=== PATIENT | female | born 1995 | race Caucasian/White ===

== ENCOUNTER 2021-06-12 08:20 | Emergency (ER) | payer OTHER ==
[~2021-06-12] VITALS: Ht 170.2 cm; Wt 128.0 kg
--- NOTE | 2021-06-12 08:31 | PHYS DOC ---
Adult General HPI HPI Patient is a 26 year old female at 30 weeks gestation who presents with concerns of not feeling her baby move in the last 24 hours. She states that her baby is usually very active and is concerned because the last time she felt him move was 2 days ago. She checked heart tones with a home doppler and was unable to get heart tones. She denies any trauma to her belly. Denies vaginal bleeding, loss of fluids, and movement. She endorses jeni toro contractions, but has not experienced any today. Review of Systems Review of Systems Fourteen body systems of review of systems have been reviewed. See HPI for pertinent positives and negative responses, other reddy all other systems are negative, non-pertinent or non-contributory Physical Exam Physical Exam Constitutional: Well developed, well nourished, no acute distress, non-toxic appearance. HENT: Normocephalic, atraumatic, bilateral external ears normal, oropharynx moist, no oral exudates, nose normal. Eyes: PERRLA, EOMI, conjunctiva normal, no discharge. Neck: Normal range of motion, no tenderness, supple, no stridor. Cardiovascular: Heart rate regular, sinus rhythm, no murmurs rubs or gallops Lungs & Thorax: Bilateral breath sounds clear to auscultation Abdomen: Bowel sounds normal, soft and gravid, no tenderness, no masses, no pulsatile masses. Nonsurgical abdomen, no peritoneal signs Skin: Warm, dry, no erythema, no rash. Back: No tenderness, no CVA tenderness. Extremities: No tenderness, no cyanosis, no clubbing, ROM intact, no edema. Neurologic: Alert and oriented X 3, grossly normal motor & sensory function, no focal deficits noted. Psychologic: Affect normal, judgement normal, mood normal. Current Patient Data Vital Signs Vital Signs Date Time Temp Pulse Resp B/P (MAP) Pulse Ox O2 Delivery O2 Flow Rate FiO2 06/12/21 08:43 98.4 110 18 158/109 (125) 97 Vital Signs Date Time Temp Pulse Resp B/P (MAP) Pulse Ox O2 Delivery O2 Flow Rate FiO2 06/12/21 10:17 105 18 138/88 (105) 98 06/12/21 08:43 98.4 EKG EKG [] Radiology/Procedures Radiology/Procedures EXAM: Obstetrics sonogram. CLINICAL HISTORY: Decreased movement. COMPARISON: None available. TECHNIQUE: Limited transabdominal ultrasound of the uterus was performed. FINDINGS: NUMBER: Single. POSITION: Cephalic. PLACENTA: Location: Anterior. ANATOMY: HEART RATE: 152 bpm. There is minimal body motion. There is a normal amniotic fluid index of 17.8 cm. The current measurements are: BPD - 7.96 = 32w0d HC -29.49 = 32w4d AC - 29.16 = 33w1d FL - 5.79 = 30w2d The weight is 1115 g. MATERNAL ANATOMY The cervix is not visualized. HISTORICAL DATES Last menstrual period: 11/10/2020 CALCULATED DATES EGA (LMP): 30 weeks and 4 days. CHELSEA (LMP): 08/17/2021 EGA (US): 32 weeks and 0 days CHELSEA (US): 08/07/2021 IMPRESSION: 1. Single intrauterine fetus with normal heart rate and gestational age based on ultrasound measurements of 32 weeks and 0 days. This is 10 days greater than the gestational age based on LMP. 2. Minimal body motion during the exam. 3. Note is made that the anatomy is not formally assessed on this exam. Electronically signed by: Sammi Chopra MD (06/12/2021 9:37 AM) [id number] Heart Score C/O Chest Pain: No Risk Factors: Risk Factors: DM, Current or recent (<one month) smoker, HTN, HLP, family history of CAD, obesity. Risk Scores: Risk Factors: DM, Current or recent (<one month) smoker, HTN, HLP, family history of CAD, obesity. Course & Med Decision Making Course & Med Decision Making ABCs unremarkable HPI, physical exam, heart rate 148 and formal ultrasound showing positive activity albeit decreased motion overall I attempted to contact patient's [facility]URSE [facility]CHOOL at [facility] when patient voiced that she wa nted to leave AGAINST MEDICAL ADVICE I had an extensive discussion with the patient regarding the risks of leaving AMA including but not limited to , permanent disability, and worsening condition. Pt acknowledged the risks and agreed to take full responsibility. Pt was A&Ox4 and had full medical decision making capacity when she signed the AMA sheet. States she just wanted to come here " to make sure everything was okay" in route to her hospital where she plans to deliver. She knew we did not have [employer]URSE SCHOOL services yet still wanted to stop for evaluation. Reports she will present directly to [facility] Risks and Recommendations: The risks of refusing recommended care that were disclosed and acknowledged by the patient include loss of current lifestyle, per manent mental impairment, and . The recommended medical care being refused has been discussed with the patient and is to stay for continued monitoring, workup, and possible treatment. Discharge Care: The patient understands they are welcome to return to the hospital at any time to receive the recommended care or any other care at any time, regardless of their ability to pay for such care. Discharge instructions were provided to the patient. Dragon Disclaimer Dragon Disclaimer This electronic medical record was generated, in whole or in part, using a voice recognition dictation system. Departure Departure: Impression: Primary Impression: Decreased movement affecting management of in third trimester Disposition: 07 LEFT AGAINST MEDICAL ADVICE Condition: GUARDED Referrals: ANDREW CHRISTINA (PCP) MAHAD ENG DO Jun 12, 2021 08:31
[2021-06-12 09:32] LABS: BACTERIA,URINE FEW /HPF (0-FEW); BILIRUBIN,URINE NEG (NEG); CLARITY,URINE HAZY; COLOR,URINE YELLOW; GLUCOSE,URINE NEG (NEG); NITRITE,URINE NEG (NEG); SQUAMOUS EPITHELIAL CELL,UR MANY /LPF; UROBILINOGEN,URINE 0.2 mg/dL (0.2 mg/dL)
--- NOTE | 2021-06-12 09:39 | RAD ---
EXAM: Obstetrics sonogram. CLINICAL HISTORY: Decreased movement. COMPARISON: None available. TECHNIQUE: Limited transabdominal ultrasound of the uterus was performed. FINDINGS: NUMBER: Single. POSITION: Cephalic. PLACENTA: Location: Anterior. ANATOMY: HEART RATE: 152 bpm. There is minimal body motion. There is a normal amniotic fluid index of 17.8 cm. The current measurements are: BPD - 7.96 = 32w0d HC -29.49 = 32w4d AC - 29.16 = 33w1d FL - 5.79 = 30w2d The weight is 1115 g. MATERNAL ANATOMY The cervix is not visualized. HISTORICAL DATES Last menstrual period: 11/10/2020 CALCULATED DATES EGA (LMP): 30 weeks and 4 days. CHELSEA (LMP): 08/17/2021 EGA (US): 32 weeks and 0 days CHELSEA (US): 08/07/2021 IMPRESSION: 1. Single intrauterine fetus with normal heart rate and gestational age based on ultrasound measureme nts of 32 weeks and 0 days. This is 10 days greater than the gestational age based on LMP. 2. Minimal body motion during the exam. 3. Note is made that the anatomy is not formally assessed on this exam. Electronically signed by: Sammi Chopra MD (06/12/2021 9:37 AM) [id number]
[2021-06-12 10:17] VITALS: BP 138/88
[2021-06-12 10:34] LABS: INFLUENZA A PATIENT NEGATIVE (NEGATIVE); INFLUENZA B PATIENT NEGATIVE (NEGATIVE)
== END 2021-06-12 10:20 | disposition left against medical advice (07) ==
LOC: ER 08:20
DX: O36.8130 Decreased fetal movements, third trimester, not applicable or unspecified (principal); Z3A.32 32 weeks gestation of pregnancy; Z20.822 Contact with and (suspected) exposure to COVID-19
CPT/HCPCS: 76815; 81001; 87086; 87428; 99284